=== PATIENT | female | born 1935 | race Hispanic/Latino ===

== ENCOUNTER 2017-06-12 20:03 | Emergency (ER) | payer MEDICARE ==
[2017-06-12 20:13] VITALS: PULSE 90; RESP 18; TEMP 97.8; O2SAT 99
[2017-06-12 20:30] VITALS: BP 188/93
[2017-06-12] MEDS ORDERED: Iohexol 240 (50 ml) PO ONE (22:07)
--- NOTE | 2017-06-12 22:07 | ED PDOC ---
HPI: General Adult Time Seen by Provider: 06/12/17 20:36 Chief Complaint (Nursing): GI Problem Chief Complaint (Provider): Constipation History Per: Patient History/Exam Limitations: no limitations Onset/Duration Of Symptoms: Days (x5) Additional Complaint(s): Madonna Marrero is an 82 year old female that presents to the ED with a chief complaint of constipation that has been ongoing for the past 5 days. Patient reports that although she has passed small amount of stool, she feels as though she still has a "large amount to move." Prior to onset, patient reports that she was experiencing diarrhea, for which she was taking Pepto Bismol. She states that she has had a loss of appetite and dark stool, the latter of which occurred after she began taking Pepto Bismol. She denies any nausea, vomiting, bloody stool, or abdominal pain. Patient states that she has been taking Amitiza as prescribed by her PMD, but with no relief. PMD: Dr. Izaguirre Past Medical History Reviewed: Historical Data, Nursing Documentation, Vital Signs Vital Signs: Last Vital Signs Temp 97.8 F 06/12/17 20:08 Pulse 90 06/12/17 20:08 Resp 18 06/12/17 20:08 BP 188/93 H 06/12/17 20:22 Pulse Ox 99 06/13/17 23:20 - Medical History Other PMH: Colitis, IBS - Family History Family History: States: Unknown Family Hx - Social History Current smoker - smoking cessation education provided: No - Home Medications Home Medications: Ambulatory Orders Medication Instructions Recorded Polyethylene Glycol 3350 [Miralax] 17 g PO QAM PRN #7 pkg 06/13/17 - Allergies Allergies/Adverse Reactions: Allergies Allergy/AdvReac Type Severity Reaction Status Date / Time No Known Allergies Allergy Verified 06/12/17 20:08 Review of Systems Constitutional: Positive for: Other (Loss of appetite) Gastrointestinal: Positive for: Diarrhea (prior to constipation), Constipation, Melena. Negative for: Nausea, Vomiting, Abdominal Pain, Hematochezia Physical Exam - Reviewed Nursing Documentation Reviewed: Yes Vital Signs Reviewed: Yes - Physical Exam Appears: Positive for: Non-toxic, In Acute Distress Head Exam: Positive for: ATRAUMATIC, NORMOCEPHALIC Skin: Positive for: Warm, Dry Eye Exam: Positive for: EOMI, PERRL Neck: Positive for: Painless ROM, Supple Cardiovascular/Chest: Positive for: Regular Rate, Rhythm. Negative for: Murmur Respiratory: Positive for: Normal Breath Sounds. Negative for: Wheezing Gastrointestinal/Abdominal: Positive for: Soft. 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 Negative for: Tenderness, Other (rectal impaction) Extremity: Positive for: Normal ROM. Negative for: Deformity Lymphatic: Negative for: Adenopathy Neurologic/Psych: Positive for: Alert. Negative for: Motor/Sensory Deficits - Laboratory Results Result Diagrams: 06/12/17 22:40 06/12/17 22:41 - ECG O2 Sat by Pulse Oximetry: 99 (RA) Pulse Ox Interpretation: Normal Medical Decision Making Medical Decision Making: Impression: Constipation, ddx include IBS vs. Obstruction Plan: * CT Abdomen/Pelvis with PO and IV contrast * X-Ray Obstructive Series * CMP * CBC * PTT * PT * Lactic Acid/Plasma * Lipase * Iohexol 50 ml PO * Phosphate Enema 135 mL * NaCl 1000 mLs at 1000 mLs/hr * Reevaluation Pt experienced minimal relief with fleet enema. Abd xray unremarkable. CT ordered. Scribe Attestation: Documented by Mine Kennedy, acting as a scribe for Sasha Restrepo MD. Provider Scribe Attestation: All medical record entries made by the Scribe were at my direction and personally dictated by me. I have reviewed the chart and agree that the record accurately reflects my personal performance of the history, physical exam, medical decision making, and the department course for this patient. I have also personally directed, reviewed, and agree with the discharge instructions and disposition. Disposition - Clinical Impression Clinical Impression: Constipation - Disposition Disposition Time: 00:00 Condition: STABLE Prescriptions: Polyethylene Glycol 3350 [Miralax] 17 g PO QAM PRN #7 pkg PRN Reason: Constipation Instructions: Constipation (ED) Forms: [employer] ([place]) Patient Signed Over To: Donnell Mohan (Pending CT and reevaluation.)
[2017-06-12] MEDS ORDERED: Sodium Chloride 0.9% 1,000 ML IV STA (22:08)
[2017-06-12] MEDS ORDERED: Iohexol 240 (50 ml) ONE (22:18)
[2017-06-12 22:44] LABS: BASO % 0.4 % (0.0-2.0); EOS # 0.1 K/uL (0.0-0.7); EOS % 1.3 % (0.0-4.0); HEMATOCRIT 39.1 % (34.0-47.0); LYMPH # 2.7 K/uL (1.0-4.3); LYMPH % 30.1 % (20.0-40.0); MEAN CELL VOLUME 91.1 fl (81.0-99.0); MEAN CORPUSCULAR HEMOGLOBIN 30.1 pg (27.0-31.0); MEAN PLATELET VOLUME 9.3 fl (7.2-11.7); MONO # 0.7 K/uL (0.0-0.8); MONO % 8.3 % (0.0-10.0); NEUT # 5.4 K/uL (1.8-7.0); NEUT % 59.9 % (50.0-75.0); NRBC % 0.1 % (0.0-0.0)
[2017-06-12 22:55] LABS: ALB/GLOB RATIO 1.4 (1.0-2.1); ALKALINE PHOSPHATASE 74 U/L (38-126); ALT/SGPT 17 U/L (9-52); AST/SGOT 55 U/L (14-36); BILIRUBIN,TOTAL 1.3 mg/dl (0.2-1.3); BLOOD UREA NITROGEN 10 mg/dl (7-17); CALCIUM 9.4 mg/dL (8.4-10.2); CARBON DIOXIDE 28 mmol/L (22-30); CHLORIDE 105 mmol/L (98-107); GFR AFRICAN-AMERICAN > 60; GLUCOSE,RANDOM 119 mg/dL (65-105); LIPASE 69 U/L (23-300); SODIUM 144 mmol/l (132-148); TOTAL PROTEIN 8.1 G/DL (6.3-8.2)
[2017-06-12 22:58] LABS: POTASSIUM 4.4 MMOL/L (3.6-5.0)
[2017-06-12 23:04] LABS: PARTIAL THROMBOPLASTIN TIME 27.4 Seconds (25.6-37.1)
--- NOTE | 2017-06-13 00:28 | ED PDOC ---
- Laboratory Results Result Diagrams: 06/12/17 22:40 06/12/17 22:41 - ECG O2 Sat by Pulse Oximetry: 99 (RA) Pulse Ox Interpretation: Normal Medical Decision Making Medical Decision Making: Patient transferred from Dr. Restrepo to hi at 00:00. Pending CT and reevaluation. EXAM: CT Abdomen and Pelvis With Intravenous Contrast CLINICAL HISTORY: 82 years old, female; Pain; Abdominal pain; Generalized; Additional info: Abdominal pain, constipation TECHNIQUE: Axial computed tomography images of the abdomen and pelvis with intravenous contrast. All CT scans at this facility use one or more dose reduction techniques, viz.: automated exposure control; ma/kV adjustment per patient size (including targeted exams where dose is matched to indication; i.e. head); or iterative reconstruction technique. 547 images are submitted. Oral contrast was administered. Coronal and sagittal reformatted images were created and reviewed. CONTRAST: 90 mL of omnipaque administered intravenously. COMPARISON: No relevant prior studies available. FINDINGS: Lower thorax: There is bibasilar atelectasis. Moderate to large hiatal hernia with wall thickening. This could be due to underdistention versus gastritis. ABDOMEN: Liver: Fatty liver. Gallbladder and bile ducts: Partially contracted gallbladder the gallbladder wall prominence. Pancreas: Unremarkable. No mass. No ductal dilation. Spleen: Unremarkable. No splenomegaly. Adrenals: Unremarkable. No mass. Kidneys and ureters: Bilateral extrarenal pelvis with physiologic distention of bilateral ureters. No hydronephrosis. Stomach and bowel: There are nonspecific fluid filled stomach, small bowel loops. These findings can represent ileus versus gastroenteritis/enteritis versus slow transit versus peristalsis. Diverticulosis. Moderate amount of stool in the colon. Nonspecific colonic wall thickening. Correlation with patient's clinical history of constipation versus stool related colitis versus under distention is recommended. Appendix: Appendix is seen and is top normal in thickness measuring 6 to 7 mm with no periappendiceal stranding. There is intraluminal contrast versus appendicolith. PELVIS: Bladder: Distended bladder. Reproductive: Uterus is seen. ABDOMEN and PELVIS: Intraperitoneal space: Unremarkable. No free air. No significant fluid collection. Bones/joints: Multilevel vacuum degenerative disease. Degenerative changes are noted within the spine. Right sided thoracic lumbar and left-sided lumbar scoliosis. Soft tissues: Unremarkable. Vasculature: Pelvic phleboliths. The aorta demonstrates calcified plaque and is mildly ectatic but normal in caliber. No abdominal aortic aneurysm. Lymph nodes: Unremarkable. No enlarged lymph nodes. IMPRESSION: 1.Moderate amount of stool in the colon. Nonspecific colonic wall thickening. Correlation with patient's clinical history of constipation versus stool related colitis versus under distention is recommended. 01:15. Discussed significance of results to patient and her son at bed side. Soap suds enema offered, but patient declined. Patient feels well enough to follow up with her PMD for further evaluation. Scribe Attestation: Documented by Dali Donaldson, acting as a scribe for Donnell Mohan. Provider Scribe Attestation: All medical record entries made by the Scribe were at my direction and personally dictated by me. I have reviewed the chart and agree that the record accurately reflects my personal performance of the history, physical exam, medical decision making, and the department course for this patient. I have also personally directed, reviewed, and agree with the discharge instructions and disposition. Disposition - Clinical Impression Clinical Impression: Constipation - POA Present On Arrival: None - Disposition Disposition: Routine/Home Disposition Time: 01:15 Condition: STABLE Prescriptions: Polyethylene Glycol 3350 [Miralax] 17 g PO QAM PRN #7 pkg PRN Reason: Constipation Instructions: Constipation (ED) Forms: [employer] ([place])
[2017-06-13] MEDS ORDERED: Sodium Chloride 0.9% 50 ML IV ONE (00:37)
[2017-06-13] MEDS ORDERED: Iohexol 300 100 ML IJ ONE (00:37)
--- NOTE | 2017-06-13 01:18 | CT ---
EXAM: CT Abdomen and Pelvis With Intravenous Contrast CLINICAL HISTORY: 82 years old, female; Pain; Abdominal pain; Generalized; Additional info: Abdominal pain, constipation TECHNIQUE: Axial computed tomography images of the abdomen and pelvis with intravenous contrast. All CT scans at this facility use one or more dose reduction techniques, viz.: automated exposure control; ma/kV adjustment per patient size (including targeted exams where dose is matched to indication; i.e. head); or iterative reconstruction technique. 547 images are submitted. Oral contrast was administered. Coronal and sagittal reformatted images were created and reviewed. CONTRAST: 90 mL of omnipaque administered intravenously. COMPARISON: No relevant prior studies available. FINDINGS: Lower thorax: There is bibasilar atelectasis. Moderate to large hiatal hernia with wall thickening. This could be due to underdistention versus gastritis. ABDOMEN: Liver: Fatty liver. Gallbladder and bile ducts: Partially contracted gallbladder the gallbladder wall prominence. Pancreas: Unremarkable. No mass. No ductal dilation. Spleen: Unremarkable. No splenomegaly. Adrenals: Unremarkable. No mass. Kidneys and ureters: Bilateral extrarenal pelvis with physiologic distention of bilateral ureters. No hydronephrosis. Stomach and bowel: There are nonspecific fluid filled stomach, small bowel loops. These findings can represent ileus versus gastroenteritis/enteritis versus slow transit versus peristalsis. Diverticulosis. Moderate amount of stool in the colon. Nonspecific colonic wall thickening. Correlation with patient's clinical history of constipation versus stool related colitis versus under distention is recommended. Appendix: Appendix is seen and is top normal in thickness measuring 6 to 7 mm with no periappendiceal stranding. There is intraluminal contrast versus appendicolith. PELVIS: Bladder: Distended bladder. Reproductive: Uterus is seen. ABDOMEN and PELVIS: Intraperitoneal space: Unremarkable. No free air. No significant fluid collection. Bones/joints: Multilevel vacuum degenerative disease. Degenerative changes are noted within the spine. Right sided thoracic lumbar and left-sided lumbar scoliosis. Soft tissues: Unremarkable. Vasculature: Pelvic phleboliths. The aorta demonstrates calcified plaque and is mildly ectatic but normal in caliber. No abdominal aortic aneurysm. Lymph nodes: Unremarkable. No enlarged lymph nodes. IMPRESSION: 1.Moderate amount of stool in the colon. Nonspecific colonic wall thickening. Correlation with patient's clinical history of constipation versus stool related colitis versus under distention is recommended.
--- NOTE | 2017-06-13 14:12 | RAD ---
PROCEDURE: Radiographs of the chest and abdomen (obstructive series) HISTORY: Abdominal pain, small-bowel obstruction suspected COMPARISON: June 12, 2017. CT abdomen and pelvis. TECHNIQUE: AP radiograph of the chest, with upright and supine radiographs of the abdomen. FINDINGS: CHEST: Lungs: Clear. Cardiovascular: No radiographic findings to suggest acute or significant cardiovascular disease. Pleura: No pleural fluid. No pneumothorax. Other findings: Small hiatal hernia ABDOMEN AND PELVIS: Bowel: Unremarkable bowel gas pattern. No evidence of mechanical obstruction. Free air: None. Bones: Unremarkable. Other findings: None. IMPRESSION: No significant or acute findings to account for/ related to the clinical presentation. Additional benign and/or incidental findings described above. Please note: No preliminary report/ innterpretation of this examination provided by emergency department personnel.
== END 2017-06-13 01:36 | disposition home or self-care (01) ==
LOC: H.ER 20:03
DX: K59.00 Constipation, unspecified (principal)
CPT/HCPCS: 74022; 74177; 80053; 83605; 83690; 85025; 85610; 85730; 96360; 99283; J7040; Q9966; Q9967

== ENCOUNTER 2018-02-23 02:40 | Emergency (ER) | payer MEDICARE ==
[2018-02-23 03:58] LABS: BASO % 0.4 % (0.0-2.0); EOS # 0.1 K/uL (0.0-0.7); EOS % 1.6 % (0.0-4.0); HEMOGLOBIN 12.5 g/dL (12.0-16.0); LYMPH # 2.4 K/uL (1.0-4.3); MEAN CELL VOLUME 90.1 fl (81.0-99.0); MEAN CORPUSCULAR HEMOGLOBIN 31.3 pg (27.0-31.0); MEAN CORPUSCULAR HGB CONC 34.7 g/dL (33.0-37.0); MEAN PLATELET VOLUME 8.6 fl (7.2-11.7); MONO # 0.6 K/uL (0.0-0.8); MONO % 7.2 % (0.0-10.0); NEUT # 4.6 K/uL (1.8-7.0); NEUT % 59.8 % (50.0-75.0); NRBC % 0.2 % (0.0-0.0); RBC 3.99 Mil/uL (3.80-5.20); RED CELL DISTRIBUTION WIDTH 13.1 % (11.5-14.5); WHITE BLOOD COUNT 7.6 K/uL (4.8-10.8)
[2018-02-23 04:10] LABS: ALB/GLOB RATIO 1.2 (1.0-2.1); ALBUMIN 3.8 g/dL (3.5-5.0); ALT/SGPT 32 U/L (9-52); AST/SGOT 23 U/L (14-36); BLOOD UREA NITROGEN 13 mg/dl (7-17); CALCIUM 9.6 mg/dL (8.4-10.2); GFR AFRICAN-AMERICAN > 60; GFR NON-AFRICAN AMERICAN > 60
[2018-02-23 04:11] VITALS: O2SAT 100
--- NOTE | 2018-02-23 04:25 | ED PDOC ---
HPI: Psych/Substance Abuse Time Seen by Provider: 02/23/18 03:11 Chief Complaint (Nursing): Anxiety Chief Complaint (Provider): Anxiety History Per: Patient History/Exam Limitations: no limitations Current Symptoms Are (Timing): Still Present Suicide/Self Injury Attempted (Context): None Associated Symptoms: Anxiety Additional Complaint(s): 83 year old female presents to ED with complaints of anxiety and a past medical history of chronic constipation, arthritis, and a known anxiety order. Patient describes feeling very uncomfortably and "'jittery". Notes that she takes Xanax QD but did not feel better after taking it earlier. Patient reports that she recently started seeing Dr. Wayne for pain management and believes that the injections for pain may be provoking this reaction. Confirms that at present she is not experiencing any symptoms. PCP: Nadeem Daniels Pain Management: [facility] Past Medical History Reviewed: Historical Data, Nursing Documentation, Vital Signs Vital Signs: Last Vital Signs Temp 99.0 F 02/23/18 03:03 Pulse 76 02/23/18 04:07 Resp 16 02/23/18 04:07 BP 186/94 H 02/23/18 04:07 Pulse Ox 100 02/23/18 04:07 - Medical History PMH: Anxiety, Arthritis, HTN (norvasc PRN) - Surgical History Surgical History: No Surg Hx - Family History Family History: States: Unknown Family Hx - Social History Current smoker - smoking cessation education provided: No Ex-Smoker (has not smoked in the last 12 months): No Alcohol: None Drugs: Denies - Home Medications Home Medications: Ambulatory Orders Medication Instructions Recorded Polyethylene Glycol 3350 [Miralax] 17 g PO QAM PRN #7 pkg 06/13/17 - Allergies Allergies/Adverse Reactions: Allergies Allergy/AdvReac Type Severity Reaction Status Date / Time No Known Allergies Allergy Verified 06/12/17 20:08 Review of Systems ROS Statement: Except As Marked, All Systems Reviewed And Found Negative Cardiovascular: Negative for: Chest Pain Respiratory: Negative for: Shortness of Breath Gastrointestinal: Negative for: Nausea, Vomiting Psych: Positive for: Anxiety Physical Exam - Reviewed Nursing Documentation Reviewed: Yes Vital Signs Reviewed: Yes - Physical Exam Appears: Positive for: Non-toxic, No Acute Distress Skin: Positive for: Normal Color, Warm, Dry Eye Exam: Positive for: Normal appearance, EOMI, PERRL Cardiovascular/Chest: Positive for: Regular Rate, Rhythm. Negative for: Murmur Respiratory: Positive for: Normal Breath Sounds. Negative for: Respiratory Distress Gastrointestinal/Abdominal: Positive for: Soft. Negative for: Tenderness Extremity: Positive for: Normal ROM. Negative for: Deformity Neurologic/Psych: Positive for: Alert, Oriented. Negative for: Motor/Sensory Deficits - Laboratory Results Result Diagrams: 02/23/18 03:45 02/23/18 03:45 - ECG ECG: Positive for: Interpreted By Me, Viewed By Me ECG Rhythm: Positive for: Normal QRS, Normal ST Segment, Sinus Rhythm Rate: 73 (04:02 02/23/18) O2 Sat by Pulse Oximetry: 100 (RA) Pulse Ox Interpretation: Normal Medical Decision Making Medical Decision Makin Initial impression: 83 year old female with non-specific anxiety Initial plan: * EKG * Labs * PTT/PT 0410 Patient noted to be hypertensive. Admits to not taking Norvasc * Norvasc 5mg PO * Re-eval 0600 Labs reviewed: no clinically signifiant abnormalities with the exception of hypokalemia * Potassium Chloride 40meq PO Patient is stable for discharge home. Dx: anxiety and hypokalemia Condition: improved Scribe Attestation: Documented by Karyn Monahan acting as a scribe for Donnell Mohan MD. Scribe Attestation: All medical record entries made by the Scribe were at my direction and personally dictated by me. I have reviewed the chart and agree that the record accurately reflects my personal performance of the history, physical exam, medical decision making, and the department course for this patient. I have also personally directed, reviewed, and agree with the discharge instructions and disposition. Disposition - Clinical Impression Clinical Impression: Anxiety, Hypertension - Disposition Referrals: Nadeem Daniels MD [Primary Care Provider] - Disposition: Routine/Home Disposition Time: 06:00 Condition: IMPROVED Instructions: Generalized Anxiety Disorder, High Blood Pressure in Adults Forms: [facility] ([place])
[2018-02-23 04:32] LABS: INR 1.1 (0.9-1.2); PARTIAL THROMBOPLASTIN TIME 27.7 Seconds (25.6-37.1); PROTHROMBIN TIME 11.7 Seconds (9.8-13.1)
[2018-02-23 05:49] VITALS: RESP 17
[2018-02-23] MEDS ORDERED: Potassium Chloride 20 mEq ER Tab PO ONE (06:00)
[2018-02-23 06:22] VITALS: BP 169/92; PULSE 76; TEMP 98.8
--- NOTE | 2018-02-23 11:04 | CARD ---
APPROVED REPORT EKG Measurement Heart [id number] VT 134P50 [id number] <Conclusion> Normal sinus rhythm Normal ECG
== END 2018-02-23 06:23 | disposition home or self-care (01) ==
LOC: H.ER 02:40
DX: F41.9 Anxiety disorder, unspecified (principal); I10 Essential (primary) hypertension; Z87.891 Personal history of nicotine dependence

== ENCOUNTER 2018-04-04 02:22 | Inpatient (IN) | payer MEDICARE ==
--- NOTE | 2018-04-04 03:10 | ED PDOC ---
HPI: Abdomen Time Seen by Provider: 04/04/18 02:31 Chief Complaint (Nursing): GI Problem Chief Complaint (Provider): GI Problem History Per: Patient, Family (sons) History/Exam Limitations: no limitations Onset/Duration Of Symptoms: Days (x1) Additional Complaint(s): Patient is an 83 y/o female with history of colitis and arthritis who presents to the ED with complaints of rectal bleeding with associated abdominal pain and diarrhea, onset x1 day ago. Patient reports that this morning at 01:30 she had a bowel movement and it seem like diarrhea but noticed a bright red color. Patient states she almost fainted, her skin was very hot to the touch after the episode, and a severe abdominal pain. At this time patient states that the pain is more of just a discomfort. She denies vomiting, shortness of breath, and chest pain. Patient is taking Tramadol and laxatives as well as medication for blood pressure. PMD:Nadeem Daniels Past Medical History Reviewed: Historical Data, Nursing Documentation, Vital Signs Vital Signs: Last Vital Signs Temp 98.5 F 04/04/18 23:42 Pulse 71 04/04/18 23:42 Resp 18 04/04/18 23:42 BP 160/77 H 04/04/18 23:42 Pulse Ox 98 04/04/18 23:42 - Medical History PMH: Anxiety, Arthritis, HTN (norvasc PRN) - Surgical History Other surgeries: Colonoscopy - Family History Family History: States: Unknown Family Hx - Home Medications Home Medications: Ambulatory Orders Medication Instructions Recorded Polyethylene Glycol 3350 [Miralax] 17 g PO QAM PRN #7 pkg 06/13/17 Tramadol HCl [Ultram] 50 mg PO Q6 04/04/18 amLODIPine [Norvasc] 5 mg PO DAILY 04/04/18 - Allergies Allergies/Adverse Reactions: Allergies Allergy/AdvReac Type Severity Reaction Status Date / Time No Known Allergies Allergy Verified 06/12/17 20:08 Review of Systems ROS Statement: Except As Marked, All Systems Reviewed And Found Negative Constitutional: Negative for: Fever Cardiovascular: Negative for: Chest Pain Respiratory: Negative for: Shortness of Breath Gastrointestinal: Positive for: Abdominal Pain, Diarrhea, Hematochezia. Negative for: Vomiting Neurological: Positive for: Dizziness (faint) Physical Exam - Reviewed Nursing Documentation Reviewed: Yes Vital Signs Reviewed: Yes - Physical Exam Appears: Positive for: Non-toxic, No Acute Distress Head Exam: Positive for: ATRAUMATIC, NORMOCEPHALIC Skin: Positive for: Pallor (lightly pale) Eye Exam: Positive for: Normal appearance, EOMI, PERRL ENT: Positive for: Normal ENT Inspection Neck: Positive for: Normal, Painless ROM, Supple Cardiovascular/Chest: Positive for: Tachycardia. Negative for: Murmur Respiratory: Positive for: Normal Breath Sounds. 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 Negative for: Pedal Edema, Deformity Neurologic/Psych: Positive for: Alert, Oriented. Negative for: Motor/Sensory Deficits - Laboratory Results Result Diagrams: 04/04/18 03:33 04/04/18 03:33 - ECG O2 Sat by Pulse Oximetry: 98 (RA) Pulse Ox Interpretation: Normal Medical Decision Making Medical Decision Making: Time: 03:05 Impression: Rectal bleeding and abdominal pain Initial Plan: Type and screen CT Abdomen and Pelvis BMP Troponin I CBC w/ differential PTT Prothrombin time Time: 05:17 CT Abdomen Pelvis with Contrast FINDINGS: Lung bases: Mild elevation right hemidiaphragm. Mediastinum: There is a small hiatal hernia. ABDOMEN: Liver: Visualized portion of the liver is unremarkable. Gallbladder and bile ducts: There has been a cholecystectomy. No biliary ductal dilatation. Pancreas: The pancreas is unremarkable. Spleen: The spleen is unremarkable. Adrenals: The adrenal glands are unremarkable. Kidneys and ureters: No hydronephrosis. No solid mass. Stomach and bowel: Wall thickening and hyper enhancement of the distal descending and sigmoid colon, compatible with infectious or inflammatory colitis. No evidence of bowel obstruction. Colonic diverticulosis. PELVIS: Appendix: Normal appendix. Bladder: Unremarkable. No mass. Reproductive: Uterus is unremarkable. No suspicious adnexal lesion seen. ABDOMEN and PELVIS: Intraperitoneal space: Unremarkable. No free air. No significant fluid collection. Bones/joints: Mild scoliosis. There are multilevel degenerative changes in the lumbar spine without acute osseous abnormality. Soft tissues: No soft tissue swelling. Vasculature: Atherosclerotic calcification affects the aorta and iliac arteries. No aortic aneurysm. Lymph nodes: No enlarged lymph nodes. IMPRESSION: Wall thickening and hyper enhancement of the distal descending and sigmoid colon , compatible with infectious or inflammatory colitis Scribe Attestation: Documented by Esa Fam, acting as a scribe for Lyric Carnes MD. Provider Scribe Attestation: All medical record entries made by the Scribe were at my direction and personally dictated by me. I have reviewed the chart and agree that the record accurately reflects my personal performance of the history, physical exam, medical decision making, and the department course for this patient. I have also personally directed, reviewed, and agree with the discharge instructions and disposition. Disposition - Clinical Impression Clinical Impression: Colitis, Gastrointestinal hemorrhage - Patient ED Disposition Is Patient to be Admitted: Yes Discussed With : Meggan Nunez Doctor Will See Patient In The: ED Counseled Patient/Family Regarding: Studies Performed, Diagnosis - Disposition Disposition Time: 05:00 Condition: FAIR - Pt Status Changed To: Hospital Disposition Of: Observation - POA Present On Arrival: None
[2018-04-04 03:37] LABS: BASO % 0.3 % (0.0-2.0); EOS % 0.2 % (0.0-4.0); HEMOGLOBIN 12.8 g/dL (12.0-16.0); LYMPH # 2.3 K/uL (1.0-4.3); LYMPH % 13.7 % (20.0-40.0); MEAN CELL VOLUME 90.7 fl (81.0-99.0); MEAN CORPUSCULAR HEMOGLOBIN 31.3 pg (27.0-31.0); MEAN CORPUSCULAR HGB CONC 34.5 g/dL (33.0-37.0); MEAN PLATELET VOLUME 8.6 fl (7.2-11.7); MONO # 0.7 K/uL (0.0-0.8); MONO % 4.4 % (0.0-10.0); NEUT # 13.5 K/uL (1.8-7.0); NEUT % 81.4 % (50.0-75.0); NRBC % 0.1 % (0.0-0.0); RBC 4.1 Mil/uL (3.80-5.20); RED CELL DISTRIBUTION WIDTH 12.8 % (11.5-14.5); WHITE BLOOD COUNT 16.5 K/uL (4.8-10.8)
[2018-04-04 03:41] LABS: INR 1.1; PROTHROMBIN TIME 11.7 Seconds (9.8-13.1)
[2018-04-04 03:44] LABS: PARTIAL THROMBOPLASTIN TIME 30.1 Seconds (25.6-37.1)
[2018-04-04 03:45] LABS: BLOOD UREA NITROGEN 19 mg/dl (7-17); CALCIUM 9.4 mg/dL (8.4-10.2); GFR AFRICAN-AMERICAN > 60; GFR NON-AFRICAN AMERICAN 60
[2018-04-04] MEDS ORDERED: Iohexol 300 100 ML IJ ONE (03:51)
[2018-04-04] MEDS ORDERED: Sodium Chloride 0.9% 50 ML IV ONE (03:52)
[2018-04-04] MEDS ORDERED: Ciprofloxacin 400mg/200ml D5W 400 MG/200 ML BAG IVPB STA (05:27)
[2018-04-04] MEDS ORDERED: metroNIDAZOLE 500mg/100ml NS 100 ML IVPB STA (05:28)
--- NOTE | 2018-04-04 06:22 | CP.PCM.HP ---
History of Present Illness - History of Present Illness History of Present Illness: 83 YO F w/ PMH of HTN, Colitis, Chronic constipation, arthritis, IBS presents to the ED after after she had a small bowl movement around 1:30 pm on (04/03/18). Patient felt as if she was having diarrhea, when she wiped she noted there was bright red blood on the toilet paper, however there was no gross blood in the toilet itself. At that point she felt light headed and grabbed on to the cabinet but did not loose consciousness or hit her head. Denies staining at that time, states she felt very hot and had cramping abdominal pain 12/09. At 10 pm she had another episode of loose stool where she noted some blood, that is when she went and called her son to take her to the ER. Patient denies previously ever noting bright red blood in her stools. She takes miralax for her constipation usually. States she had a normal large bowl movement on without any problems. Patient states she has decreased weight within the last year because she is not able to eat certain foods, because it causes stomach discomfort. She has lost about 10 pound in the last year. Denies any night sweats, fever, chills, nausea, vomiting, SOB, palpitation or chest pain. Denies any recent usage of any antibiotics. - Patient had a colonoscopy 5 years ago by . As per patient there was nothing concerning other then collitis and 2 polyps which were removed. PMH: HTN, Collitis, IBS, Chronic constipation, arthritis, Anxiety PSH: None Allergies: NKDA FH: None SH: Denies any illicit drug use, lives with her son. PMD: Dr. Izaguirre Present on Admission - Present on Admission Any Indicators Present on Admission: No Past Patient History - Past Social History Smoking Status: Never Smoked - CARDIAC Hx Hypertension: Yes (norvasc PRN) - MUSCULOSKELETAL/RHEUMATOLOGICAL Hx Arthritis: Yes - GASTROINTESTINAL Hx Gastrointestinal Disorders: Yes Hx Colitis: Yes Hx Constipation: Yes - PSYCHIATRIC Hx Anxiety: Yes - SURGICAL HISTORY Hx Surgeries: No - ANESTHESIA Hx Anesthesia: No Meds Allergies/Adverse Reactions: Allergies Allergy/AdvReac Type Severity Reaction Status Date / Time No Known Allergies Allergy Verified 06/12/17 20:08 Physical Exam - Constitutional Appears: No Acute Distress - Head Exam Head Exam: NORMAL INSPECTION - Eye Exam Eye Exam: Normal appearance Pupil Exam: NORMAL ACCOMODATION - ENT Exam ENT Exam: Mucous Membranes Dry - Neck Exam Neck exam: Positive for: Normal Inspection - Respiratory Exam Respiratory Exam: Clear to Auscultation Bilateral, NORMAL BREATHING PATTERN. absent: Rhonchi, Wheezes - Cardiovascular Exam Cardiovascular Exam: REGULAR RHYTHM, +S1, +S2 - GI/Abdominal Exam GI & Abdominal Exam: Normal Bowel Sounds, Soft, Tenderness. absent: Guarding Additional comments: left lower quadrant tenderness - Extremities Exam Extremities exam: Positive for: normal inspection. Negative for: calf tenderness - Neurological Exam Neurological exam: Alert, CN II-XII Intact, Oriented x3 - Skin Skin Exam: Pallor, Warm Results - Vital Signs Recent Vital Signs: Last Vital Signs Temp 98.3 F 04/04/18 05:13 Pulse 88 04/04/18 05:13 Resp 16 04/04/18 05:13 BP 147/90 04/04/18 05:13 Pulse Ox 98 04/04/18 05:19 - Labs Result Diagrams: 04/04/18 03:33 04/04/18 03:33 Labs: Laboratory Results - last 24 hr 04/04/18 04/04/18 04/04/18 03:25 03:33 03:33 WBC 16.5 H D RBC 4.10 Hgb 12.8 Hct 37.2 MCV 90.7 MCH 31.3 H MCHC 34.5 RDW 12.8 Plt Count 218 MPV 8.6 Neut % (Auto) 81.4 H Lymph % (Auto) 13.7 L [place] % (Auto) 4.4 Eos % (Auto) 0.2 Baso % (Auto) 0.3 Neut # (Auto) 13.5 H Lymph # (Auto) 2.3 [place] # (Auto) 0.7 Eos # (Auto) 0.0 Baso # (Auto) 0.0 PT INR APTT Sodium 142 Potassium 3.7 Chloride 101 Carbon Dioxide 28 Anion Gap 17 BUN 19 H Creatinine 0.9 Est GFR ( Amer) > 60 Est GFR (Non-Af Amer) 60 Random Glucose 138 H Calcium 9.4 Troponin I < 0.0120 Stool Occult Blood Blood Type A POSITIVE Antibody Screen Negative BBK History Checked No verified bt 04/04/18 04/04/18 03:33 03:33 WBC RBC Hgb Hct MCV MCH MCHC RDW Plt Count MPV Neut % (Auto) Lymph % (Auto) [place] % (Auto) Eos % (Auto) Baso % (Auto) Neut # (Auto) Lymph # (Auto) [place] # (Auto) Eos # (Auto) Baso # (Auto) PT 11.7 INR 1.1 APTT 30.1 Sodium Potassium Chloride Carbon Dioxide Anion Gap BUN Creatinine Est GFR ( Amer) Est GFR (Non-Af Amer) Random Glucose Calcium Troponin I Stool Occult Blood Positive H Blood Type Antibody Screen BBK History Checked Assessment & Plan - Assessment and Plan (Free Text) Assessment: 83 YO F w/ PMH of HTN, colitis, arthritis, IBS is being admitted for abdominal pain and bright red blood per rectum. 1) Abdominal pain most likely secondary to colitis - CT abdomen: Wall thickening and hyper enhancement of the distal descending and sigmoid colon, compatible with infectious or inflammatory colitis - WBC: 16.5, afebrile - FOBT positive, Hemoglobin stable - NPO, will advance diet as tolerated - [facility] Rx Cipro 400mg Q12 and Flagyl 500 Q8 - GI consulted 2) HTN - c/w home meds 3) DVT prophylaxis - SCD
[2018-04-04] MEDS ORDERED: Ciprofloxacin 400mg/200ml D5W 400 MG/200 ML BAG IVPB ONE (06:23)
[2018-04-04] MEDS ORDERED: POLYETHYLENE GLYCOL 3350 17 GM/Dose PACKET PO PRN (06:30)
[2018-04-04] MEDS: Sodium Chloride 0.9% 1,000 ML IV SCH ×2 (07:59→17:01)
--- NOTE | 2018-04-04 09:02 | CT ---
Date of service: 04/04/2018 PROCEDURE: CT Abdomen and Pelvis without intravenous contrast HISTORY: lower abd pain rectal bleeding COMPARISON: None. TECHNIQUE: Technique. Contrast dose: Radiation dose: Total exam DLP = mGy-cm. This CT exam was performed using one or more of the following dose reduction techniques: Automated exposure control, adjustment of the mA and/or kV according to patient size, and/or use of iterative reconstruction technique. FINDINGS: LOWER THORAX: Moderate hiatal hernia. LIVER: Unremarkable. No gross lesion or ductal dilatation. GALLBLADDER AND BILE DUCTS: Unremarkable. PANCREAS: Unremarkable. No gross lesion or ductal dilatation. SPLEEN: Unremarkable. ADRENALS: Unremarkable. No mass. KIDNEYS AND URETERS: Unremarkable. No hydronephrosis. No solid mass. VASCULATURE: Unremarkable. No aortic aneurysm. BOWEL: Mild wall thickening of the descending colon and sigmoid colon and rectum. Mild colonic diverticulosis. No obstruction. APPENDIX: Unremarkable. Normal appendix. PERITONEUM: Unremarkable. No free fluid. No free air. LYMPH NODES: Unremarkable. No enlarged lymph nodes. BLADDER: Unremarkable. REPRODUCTIVE: Unremarkable. BONES: No acute fracture. OTHER FINDINGS: None. IMPRESSION: Mild wall thickening of the descending colon and sigmoid colon and rectum. Mild colonic diverticulosis. No obstruction.
[2018-04-04] MEDS: metroNIDAZOLE 500mg/100ml NS 100 ML IVPB SCH (17:00)
[2018-04-04] MEDS: Ciprofloxacin 400mg/200ml D5W 400 MG/200 ML BAG IVPB SCH (20:48)
--- NOTE | 2018-04-04 23:38 | CP.PCM.CON ---
History of Present Illness - History of Present Illness History of Present Illness: 83 yo femalewith h/o "colititis" , hypertension , and irregular bowel movements admitted with abdominal pain, weakness, and bloody bowel movement. This started while sleeping at night. Patient states she has to limit her diet because she is unable to tolerate many foods. Has been ordering out rather than cooking over the past week and one of the soups did not taste right. Last colonscopy 5 years ago. On no daily GI medicines. Review of Systems - Constitutional Constitutional: absent: Chills - EENT Eyes: absent: Blurred Vision Ears: absent: Ear Discharge Nose/Mouth/Throat: absent: Nasal Congestion - Breasts Breasts: absent: Change in Shape - Cardiovascular Cardiovascular: absent: Chest Pain - Respiratory Respiratory: absent: Dyspnea - Gastrointestinal Gastrointestinal: As Per HPI - Genitourinary Genitourinary: absent: Change in Urinary Stream - Musculoskeletal Musculoskeletal: absent: Arthralgias Past Patient History - Past Medical History & Family History Past Medical History?: Yes - Past Social History Smoking Status: Stopped 30 - CARDIAC Hx Hypertension: Yes (norvasc PRN) - PULMONARY Hx Respiratory Disorders: No - NEUROLOGICAL Hx Vertigo: Yes - HEENT Other/Comment: Wears corrective lenses for reading - RENAL Hx Chronic Kidney Disease: No - HEMATOLOGICAL/ONCOLOGICAL Hx Blood Disorders: No - INTEGUMENTARY Hx Dermatological Problems: No - MUSCULOSKELETAL/RHEUMATOLOGICAL Hx Musculoskeletal Disorders: Yes Hx Arthritis: Yes Hx Back Pain: Yes Hx Falls: Yes (Questionable fall in BR/did not pass out, assisted self to floor) Other/Comment: Ambulates at home with use of Quad cane - GASTROINTESTINAL Hx Gastrointestinal Disorders: Yes Hx Colitis: Yes Hx Constipation: Yes - GENITOURINARY/GYNECOLOGICAL Hx Genitourinary Disorders: No - PSYCHIATRIC Hx Psychophysiologic Disorder: No Hx Anxiety: Yes Hx Substance Use: No - SURGICAL HISTORY Hx Surgeries: Yes Other/Comment: Polyp surgery post childbirth of 2nd son - ANESTHESIA Hx Anesthesia: Yes Hx Anesthesia Reactions: No Meds Allergies/Adverse Reactions: Allergies Allergy/AdvReac Type Severity Reaction Status Date / Time No Known Allergies Allergy Verified 06/12/17 20:08 - Medications Medications: Current Medications Amlodipine Besylate (Norvasc) 5 mg PO DAILY KYLIE Last Admin: 04/04/18 08:44 Dose: 5 mg Diazepam (Valium) 2 mg PO TID PRN PRN Reason: Agitation Last Admin: 04/04/18 22:25 Dose: 2 mg Enoxaparin Sodium (Lovenox) 40 mg SC DAILY KYLIE PRN Reason: Protocol Ciprofloxacin (Cipro 400mg/200ml Dsw) 400 mg in 200 mls @ 200 mls/hr IVPB Q12 KYLIE PRN Reason: Protocol Last Admin: 04/04/18 20:48 Dose: 200 mls/hr Metronidazole (Flagyl 500mg/100ml Ns) 100 mls @ 100 mls/hr IVPB Q8 KYLIE PRN Reason: Protocol Last Admin: 04/04/18 17:00 Dose: 100 mls/hr Polyethylene Glycol (Miralax) 17 gm PO QAM PRN PRN Reason: Constipation Physical Exam - Constitutional Appears: Well - Head Exam Head Exam: NORMAL INSPECTION - Eye Exam Eye Exam: EOMI - ENT Exam ENT Exam: Normal Exam - Neck Exam Neck exam: Positive for: Normal Inspection - Respiratory Exam Respiratory Exam: Clear to Auscultation Bilateral - Cardiovascular Exam Cardiovascular Exam: REGULAR RHYTHM, +S1, +S2 - GI/Abdominal Exam GI & Abdominal Exam: Normal Bowel Sounds, Soft. absent: Tenderness - Extremities Exam Extremities exam: Positive for: normal inspection Results - Vital Signs Recent Vital Signs: Last Vital Signs Temp 99.5 F 04/04/18 17:06 Pulse 84 04/04/18 16:10 Resp 18 04/04/18 16:10 BP 145/83 04/04/18 16:10 Pulse Ox 98 04/04/18 16:10 - Labs Result Diagrams: 04/04/18 03:33 04/04/18 03:33 Labs: Laboratory Results - last 24 hr 04/04/18 04/04/18 04/04/18 03:25 03:33 03:33 WBC 16.5 H D RBC 4.10 Hgb 12.8 Hct 37.2 MCV 90.7 MCH 31.3 H MCHC 34.5 RDW 12.8 Plt Count 218 MPV 8.6 Neut % (Auto) 81.4 H Lymph % (Auto) 13.7 L [place] % (Auto) 4.4 Eos % (Auto) 0.2 Baso % (Auto) 0.3 Neut # (Auto) 13.5 H Lymph # (Auto) 2.3 [place] # (Auto) 0.7 Eos # (Auto) 0.0 Baso # (Auto) 0.0 PT INR APTT Sodium 142 Potassium 3.7 Chloride 101 Carbon Dioxide 28 Anion Gap 17 BUN 19 H Creatinine 0.9 Est GFR ( Amer) > 60 Est GFR (Non-Af Amer) 60 Random Glucose 138 H Calcium 9.4 Troponin I < 0.0120 Stool Occult Blood Blood Type A POSITIVE Antibody Screen Negative BBK History Checked No verified bt 04/04/18 04/04/18 03:33 03:33 WBC RBC Hgb Hct MCV MCH MCHC RDW Plt Count MPV Neut % (Auto) Lymph % (Auto) [place] % (Auto) Eos % (Auto) Baso % (Auto) Neut # (Auto) Lymph # (Auto) [place] # (Auto) Eos # (Auto) Baso # (Auto) PT 11.7 INR 1.1 APTT 30.1 Sodium Potassium Chloride Carbon Dioxide Anion Gap BUN Creatinine Est GFR ( Amer) Est GFR (Non-Af Amer) Random Glucose Calcium Troponin I Stool Occult Blood Positive H Blood Type Antibody Screen BBK History Checked - Imaging and Cardiology CT scan - abdomen Status: Report reviewed by me Assessment & Plan (1) Colitis Assessment and Plan: Rectal bleeding, abdominal pain, and wall thickening of distal and sigmoid with hyperenhancement c/w colitis. Occurence while at rest more c/w infectious than ischemic. Currently doing well and is w/o pain. May advance diet as tolerated and when discharged continue on oral antibiotics for one week. Status: Acute
[2018-04-05] MEDS: metroNIDAZOLE 500mg/100ml NS 100 ML IVPB SCH ×3 (00:06→16:55)
[2018-04-05] MEDS ORDERED: Benzocaine/Menthol (Cepacol) Lozenge PO PRN (04:19)
[2018-04-05 07:49] LABS: BASO % 0.1 % (0.0-2.0); EOS # 0.1 K/uL (0.0-0.7); EOS % 0.5 % (0.0-4.0); HEMOGLOBIN 12.1 g/dL (12.0-16.0); LYMPH # 1.9 K/uL (1.0-4.3); LYMPH % 13.3 % (20.0-40.0); MEAN CELL VOLUME 91.1 fl (81.0-99.0); MEAN CORPUSCULAR HEMOGLOBIN 30.9 pg (27.0-31.0); MEAN PLATELET VOLUME 9.1 fl (7.2-11.7); MONO # 0.8 K/uL (0.0-0.8); MONO % 5.6 % (0.0-10.0); NEUT # 11.4 K/uL (1.8-7.0); NEUT % 80.5 % (50.0-75.0); NRBC % 0.1 % (0.0-0.0); RBC 3.91 Mil/uL (3.80-5.20); RED CELL DISTRIBUTION WIDTH 12.9 % (11.5-14.5); WHITE BLOOD COUNT 14.1 K/uL (4.8-10.8)
[2018-04-05] MEDS: Ciprofloxacin 400mg/200ml D5W 400 MG/200 ML BAG IVPB SCH ×2 (08:59→21:15)
[2018-04-05] MEDS: Enoxaparin 40 mg Syringe SC SCH ×2 (09:01→09:03)
--- NOTE | 2018-04-05 16:10 | CP.PCM.PN ---
Subjective - Date & Time of Evaluation Date of Evaluation: 04/05/18 Time of Evaluation: 08:45 - Subjective Subjective: Patient seen and examined at bedside. Reports eating some solid food for breakfast which caused some abdominal discomfort. Bowel movements remain watery , denies abdominal cramping or blood in the stool. Son at bedside and patient recall multiple episode of similar symptoms many years ago, reports usually occurs in hot/humid weather. Denies chest pain, SOB, weakness or dizziness. Objective - Vital Signs/Intake and Output Vital Signs (last 24 hours): Temp Pulse Resp BP Pulse Ox 97.7 F 92 H 19 160/94 H 97 04/05/18 07:42 04/05/18 08:53 04/05/18 07:42 04/05/18 08:53 04/05/18 07:42 - Medications Medications: Current Medications Amlodipine Besylate (Norvasc) 5 mg PO DAILY [facility] Last Admin: 04/05/18 08:53 Dose: 5 mg Benzocaine/Menthol (Cepacol Sore Throat) 1 amari PO Q2 PRN PRN Reason: Sore Throat Last Admin: 04/05/18 04:43 Dose: 1 amari Diazepam (Valium) 2 mg PO TID PRN PRN Reason: Agitation Last Admin: 04/04/18 22:25 Dose: 2 mg Enoxaparin Sodium (Lovenox) 40 mg SC DAILY KYLIE PRN Reason: Protocol Last Admin: 04/05/18 09:03 Dose: Not Given Ciprofloxacin (Cipro 400mg/200ml Dsw) 400 mg in 200 mls @ 200 mls/hr IVPB Q12 KYLIE PRN Reason: Protocol Last Admin: 04/05/18 08:59 Dose: 200 mls/hr Metronidazole (Flagyl 500mg/100ml Ns) 100 mls @ 100 mls/hr IVPB Q8 KYLIE PRN Reason: Protocol Last Admin: 04/05/18 09:00 Dose: 100 mls/hr Polyethylene Glycol (Miralax) 17 gm PO QAM PRN PRN Reason: Constipation - Labs Labs: 04/05/18 05:30 04/04/18 03:33 PT 11.7 Seconds (9.8-13.1) 04/04/18 03:33 INR 1.1 04/04/18 03:33 APTT 30.1 Seconds (25.6-37.1) 04/04/18 03:33 - Constitutional Appears: No Acute Distress - Head Exam Head Exam: ATRAUMATIC, NORMOCEPHALIC - Eye Exam Eye Exam: EOMI - ENT Exam ENT Exam: Mucous Membranes Moist - Neck Exam Neck Exam: Full ROM - Respiratory Exam Respiratory Exam: Clear to Ausculation Bilateral, NORMAL BREATHING PATTERN - Cardiovascular Exam Cardiovascular Exam: REGULAR RHYTHM, +S1, +S2 - GI/Abdominal Exam GI & Abdominal Exam: Soft, Tenderness (mild in right periumbilical area, LLQ), Normal Bowel Sounds. absent: Guarding, Rigid - Extremities Exam Extremities Exam: Full ROM. absent: Pedal Edema - Neurological Exam Neurological Exam: Alert, Awake, CN II-XII Intact, Oriented x3 - Psychiatric Exam Psychiatric exam: Normal Affect, Normal Mood - Skin Skin Exam: Dry, Normal Color, Warm Assessment and Plan - Assessment and Plan (Free Text) Assessment: 83 yr old F admitted for symptomatic colitis and +FOBT with PMHx of HTN, colitis , arthritis, IBS. 1) Colitis of distal descending and sigmoid colon -acute, improving -CT abdomen: Wall thickening and hyper enhancement of the distal descending and sigmoid colon, compatible with infectious or inflammatory colitis -leukocytosis improving (14.1 today), afebrile -FOBT positive, Hemoglobin stable -Diet advanced -continue Cipro 400mg IV Q12 and Flagyl 500mg IV Q8, held home medication ( Miralax) -GI consulted: Dr. Hoskins appreciated: assessment consistent more with infectious colitis than with ischemic: advance diet, continue with IV antiobiotics -shank cementer hand consult appreciated 2) HTN -chronic, uncontrolled -continue with home medications: Amlodipine 5mg PO QD 3) DVT prophylaxis -Lovenox 40mg SC QD
[2018-04-06 00:36] VITALS: O2SAT 99
[2018-04-06] MEDS: metroNIDAZOLE 500mg/100ml NS 100 ML IVPB SCH ×2 (01:20→11:50)
--- NOTE | 2018-04-06 06:05 | CP.PCM.PCO ---
<Meggan Nunez - Last Filed: 04/06/18 05:58> Progress - Re-Evaluation Re-evaluation Note: 04/06/18 05:58 RN paged the creative writer to assess the patient. Patient has taken her IV out. She is having delusions that "someone took her sons and did something with them." "People are throwing rocks at her from the window". She is getting up out of bed and going into other patients rooms. - Multiple attempts were made to reorient the patient and reassure her she is in [place] and her sons will come visit her later. Patient is becoming more agitated, and cursing at the nursing staff. General: Agitated CVS: S1S2 heard Lungs: CTAB Abd: Soft NTND A/P For patients safety : - 1:1 has been ordered - Haldol 0.5 IM - Hold patients valium to prevent worsening delirium - CBC, CMP, U/A. Will work patient up to see cause of acute delirium <Nadeem Daniels - Last Filed: 04/06/18 06:52> Attending/Attestation - Attestation I have personally seen and examined this patient.: Yes I have fully participated in the care of the patient.: Yes I have reviewed all pertinent clinical information: Yes
[2018-04-06 08:04] VITALS: BP 163/90; PULSE 83; RESP 20; TEMP 98.2
--- NOTE | 2018-04-06 08:31 | RAD ---
Date of service: 04/06/2018 HISTORY: r/o pneumonia COMPARISON: Frontal chest radiograph 06/12/2017. FINDINGS: LUNGS: No acute infiltrate identified. Reversed apical lordotic capture distorts mediastinum. Inspiratory volume may be diminished somewhat. PLEURA: No significant pleural effusion identified, no pneumothorax apparent. CARDIOVASCULAR: Normal. OSSEOUS STRUCTURES: No significant abnormalities. VISUALIZED UPPER ABDOMEN: Normal. OTHER FINDINGS: None. IMPRESSION: No definite interval acute cardiopulmonary disease appreciable.
[2018-04-06 09:32] LABS: SQUAMOUS EPITHIAL 6 /hpf (0-5); URINE BILIRUBIN NEGATIVE (NEGATIVE); URINE BLOOD SMALL (NEGATIVE); URINE CLARITY SLIGHTY-CLOUDY (Clear); URINE COLOR YELLOW (YELLOW); URINE GLUCOSE (UA) NEG (Normal); URINE HYALINE CAST 0-2 /hpf (0-2); URINE LEUKOCYTE ESTERASE MOD Leu/uL (Negative); URINE PROTEIN NEGATIVE (NEGATIVE); URINE UROBILINOGEN 0.2-1.0 mg/dL (0.2-1.0)
[2018-04-06 10:51] LABS: BASO % 0.3 % (0.0-2.0); EOS # 0.1 K/uL (0.0-0.7); EOS % 1.4 % (0.0-4.0); HEMOGLOBIN 11.9 g/dL (12.0-16.0); LYMPH # 1.4 K/uL (1.0-4.3); LYMPH % 14.3 % (20.0-40.0); MEAN CELL VOLUME 90.9 fl (81.0-99.0); MEAN CORPUSCULAR HEMOGLOBIN 31.6 pg (27.0-31.0); MEAN CORPUSCULAR HGB CONC 34.7 g/dL (33.0-37.0); MEAN PLATELET VOLUME 9.3 fl (7.2-11.7); MONO # 0.6 K/uL (0.0-0.8); MONO % 6.3 % (0.0-10.0); NEUT # 7.7 K/uL (1.8-7.0); NEUT % 77.7 % (50.0-75.0); RBC 3.78 Mil/uL (3.80-5.20); RED CELL DISTRIBUTION WIDTH 12.8 % (11.5-14.5); WHITE BLOOD COUNT 9.9 K/uL (4.8-10.8)
[2018-04-06 11:09] LABS: ALB/GLOB RATIO 1.3 (1.0-2.1); ALBUMIN 3.6 g/dL (3.5-5.0); ALT/SGPT 22 U/L (9-52); AST/SGOT 57 U/L (14-36); BLOOD UREA NITROGEN 5 mg/dl (7-17); CALCIUM 9.2 mg/dL (8.4-10.2); GFR AFRICAN-AMERICAN > 60; GFR NON-AFRICAN AMERICAN > 60
[2018-04-06] MEDS: Enoxaparin 40 mg Syringe SC SCH (11:44)
[2018-04-06] MEDS ORDERED: Potassium Chloride 20 mEq ER Tab PO ONE (11:46)
[2018-04-06] MEDS: Ciprofloxacin 400mg/200ml D5W 400 MG/200 ML BAG IVPB SCH (11:49)
--- NOTE | 2018-04-06 12:22 | CP.PCM.DIS ---
Provider - Provider Date of Admission: 04/04/18 12:30 Attending physician: Nadeem Daniels MD Primary care physician: Dr. Daniels Consults: GI, Dr. Barron Time Spent in preparation of Discharge (in minutes): 40 Diagnosis - Discharge Diagnosis (1) Infectious colitis Status: Acute (2) Hypertension Status: Chronic Hospital Course - Lab Results Lab Results: Most Recent Lab Values WBC 9.9 K/uL (4.8-10.8) 04/06/18 10:45 RBC 3.78 Mil/uL (3.80-5.20) L 04/06/18 10:45 Hgb 11.9 g/dL (12.0-16.0) L 04/06/18 10:45 Hct 34.4 % (34.0-47.0) 04/06/18 10:45 MCV 90.9 fl (81.0-99.0) 04/06/18 10:45 MCH 31.6 pg (27.0-31.0) H 04/06/18 10:45 MCHC 34.7 g/dL (33.0-37.0) 04/06/18 10:45 RDW 12.8 % (11.5-14.5) 04/06/18 10:45 Plt Count 205 K/uL (130-400) 04/06/18 10:45 MPV 9.3 fl (7.2-11.7) 04/06/18 10:45 Neut % (Auto) 77.7 % (50.0-75.0) H 04/06/18 10:45 Lymph % (Auto) 14.3 % (20.0-40.0) L 04/06/18 10:45 [place] % (Auto) 6.3 % (0.0-10.0) 04/06/18 10:45 Eos % (Auto) 1.4 % (0.0-4.0) 04/06/18 10:45 Baso % (Auto) 0.3 % (0.0-2.0) 04/06/18 10:45 Neut # (Auto) 7.7 K/uL (1.8-7.0) H 04/06/18 10:45 Lymph # (Auto) 1.4 K/uL (1.0-4.3) 04/06/18 10:45 [place] # (Auto) 0.6 K/uL (0.0-0.8) 04/06/18 10:45 Eos # (Auto) 0.1 K/uL (0.0-0.7) 04/06/18 10:45 Baso # (Auto) 0.0 K/uL (0.0-0.2) 04/06/18 10:45 PT 11.7 Seconds (9.8-13.1) 04/04/18 03:33 INR 1.1 04/04/18 03:33 APTT 30.1 Seconds (25.6-37.1) 04/04/18 03:33 Sodium 143 mmol/l (132-148) 04/06/18 10:45 Potassium 3.0 MMOL/L (3.6-5.0) L 04/06/18 10:45 Chloride 105 mmol/L (98-107) 04/06/18 10:45 Carbon Dioxide 27 mmol/L (22-30) 04/06/18 10:45 Anion Gap 14 (10-20) 04/06/18 10:45 BUN 5 mg/dl (7-17) L 04/06/18 10:45 Creatinine 0.8 mg/dl (0.7-1.2) 04/06/18 10:45 Est GFR ( Amer) > 60 04/06/18 10:45 Est GFR (Non-Af Amer) > 60 04/06/18 10:45 Random Glucose 146 mg/dL (65-105) H 04/06/18 10:45 Calcium 9.2 mg/dL (8.4-10.2) 04/06/18 10:45 Total Bilirubin 0.7 mg/dl (0.2-1.3) 04/06/18 10:45 AST 57 U/L (14-36) H D 04/06/18 10:45 ALT 22 U/L (9-52) 04/06/18 10:45 Alkaline Phosphatase 66 U/L (38-126) 04/06/18 10:45 Troponin I < 0.0120 ng/mL (0.00-0.120) 04/04/18 03:33 Total Protein 6.4 G/DL (6.3-8.2) 04/06/18 10:45 Albumin 3.6 g/dL (3.5-5.0) 04/06/18 10:45 Globulin 2.8 gm/dL (2.2-3.9) 04/06/18 10:45 Albumin/Globulin Ratio 1.3 (1.0-2.1) 04/06/18 10:45 Urine Color Yellow (YELLOW) 04/06/18 09:12 Urine Clarity Slighty-cloudy (Clear) 04/06/18 09:12 Urine pH 7.0 (5.0-8.0) 04/06/18 09:12 Ur Specific [place] 1.008 (1.003-1.030) 04/06/18 09:12 Urine Protein Negative mg/dL (NEGATIVE) 04/06/18 09:12 Urine Glucose (UA) Neg mg/dL (Normal) 04/06/18 09:12 Urine Ketones Negative mg/dL (NEGATIVE) 04/06/18 09:12 Urine Blood Small (NEGATIVE) 04/06/18 09:12 Urine Nitrate Negative (NEGATIVE) 04/06/18 09:12 Urine Bilirubin Negative (NEGATIVE) 04/06/18 09:12 Urine Urobilinogen 0.2-1.0 mg/dL (0.2-1.0) 04/06/18 09:12 Ur Leukocyte Esterase Mod [place]/uL (Negative) 04/06/18 09:12 Urine RBC (Auto) 6 /hpf (0-3) H 04/06/18 09:12 Urine Microscopic WBC 4 /hpf (0-5) 04/06/18 09:12 Ur Squamous Epith Cells 6 /hpf (0-5) H 04/06/18 09:12 Hyaline Casts 0-2 /hpf (0-2) 04/06/18 09:12 Stool Occult Blood Positive (NEGATIVE) H 04/04/18 03:33 Blood Type A POSITIVE 04/04/18 03:25 Antibody Screen Negative 04/04/18 03:25 BBK History Checked No verified bt 04/04/18 03:25 - Hospital Course Hospital Course: 83 yr old F admitted for symptomatic colitis and +FOBT with PMHx of HTN, colitis , arthritis, IBS. patient was started on home medication and IV Cipro and Flagyl. GI, Dr. Hoskins was consulted who recommended PO Cipro 500 Q12 for 7d after discharge. Patient's colitis symptoms improved but had few episodes of delirium a night before the discharge, patient's son admits leaving three tabs of Valium 2.5mg at bedside which patient reports taking before delirium. CBC, CMP, UA, Ucx, Bcx and CXR was done before discharge and evaluated. Patient was seen and examined this afternoon, calm, AAOx3 and verbally responsive, normal to her baseline. Patient is ambulating, and requesting for the discharge today. Follow up Urine Cx and Blood Cx as out patient. Follow up Dr. Daniels and GIDr. Hoskins after discharge Discharge Exam - Head Exam Head Exam: ATRAUMATIC, NORMOCEPHALIC - Eye Exam Eye Exam: EOMI, Normal appearance, PERRL Pupil Exam: NORMAL ACCOMODATION - ENT Exam ENT Exam: Mucous Membranes Moist - Respiratory Exam Respiratory Exam: Clear to PA & Lateral, NORMAL BREATHING PATTERN. absent: Rales, Wheezes, Respiratory Distress - Cardiovascular Exam Cardiovascular Exam: REGULAR RHYTHM, +S1, +S2 - GI/Abdominal Exam GI & Abdominal Exam: Normal Bowel Sounds, Soft. absent: Distended, Firm, Guarding, Hernia, Organomegaly, Rebound, Rigid, Tenderness - Extremities Exam Extremities exam: normal capillary refill, normal inspection, pedal pulses present - Back Exam Back exam: absent: CVA tenderness (L), CVA tenderness (R) - Neurological Exam Neurological exam: Alert, CN II-XII Intact, Oriented x3 - Psychiatric Exam Psychiatric exam: Normal Affect, Normal Mood - Skin Skin Exam: Dry, Intact, Normal Color, Warm Discharge Plan - Discharge Medications Prescriptions: Ciprofloxacin HCl [Cipro] 500 mg PO BID 7 Days #14 tablet - Follow Up Plan Condition: FAIR Disposition: HOME/ ROUTINE Instructions: Diarrhea in Adolescents and Adults, Constipation in Adults, Anxiety, Adult (DC), Controlling Your Blood Pressure Through Lifestyle Additional Instructions: Follow up with Dr. Daniels in 1 week Follow up with Dr. Gato NAJERA Referrals: Nadeem Daniels MD [Family Provider] - Ke Hoskins MD [Staff Provider] -
--- NOTE | 2018-04-06 19:44 | CP.PCM.PN ---
Subjective - Date & Time of Evaluation Date of Evaluation: 04/06/18 Time of Evaluation: 11:00 - Subjective Subjective: Currently without complaint. Tolerating regular diet. Objective - Vital Signs/Intake and Output Vital Signs (last 24 hours): Temp Pulse Resp BP Pulse Ox 98.2 F 83 20 163/90 H 99 04/06/18 09:00 04/06/18 09:01 04/06/18 09:00 04/06/18 09:01 04/06/18 09:00 - Labs Labs: 04/06/18 10:45 04/06/18 10:45 PT 11.7 Seconds (9.8-13.1) 04/04/18 03:33 INR 1.1 04/04/18 03:33 APTT 30.1 Seconds (25.6-37.1) 04/04/18 03:33 - Head Exam Head Exam: ATRAUMATIC - Eye Exam Eye Exam: Normal appearance Pupil Exam: PERRL - ENT Exam ENT Exam: Normal Exam - Neck Exam Neck Exam: Normal Inspection - Respiratory Exam Respiratory Exam: NORMAL BREATHING PATTERN - Cardiovascular Exam Cardiovascular Exam: REGULAR RHYTHM, +S1, +S2 - GI/Abdominal Exam GI & Abdominal Exam: Soft, Normal Bowel Sounds. absent: Tenderness Assessment and Plan (1) Colitis Assessment & Plan: Patient continues to improve. Stable for discharge. Continue Cipro for one week. Status: Acute
== END 2018-04-06 16:30 | disposition home health service (06) | DRG 392 ==
LOC: H.ER 02:22 → H.ERHOLD 05:26 → H.MEDSURG1 09:20 → OBSVTOIN 12:30
PROVIDERS: ADMIT Family Medicine; ATTEND Family Medicine
DX: A09 Infectious gastroenteritis and colitis, unspecified (principal); I10 Essential (primary) hypertension; K58.9 Irritable bowel syndrome, unspecified; K59.09 Other constipation; M19.90 Unspecified osteoarthritis, unspecified site; F41.9 Anxiety disorder, unspecified; R41.0 Disorientation, unspecified

== ENCOUNTER 2018-08-25 09:46 | Emergency (ER) | payer MEDICARE ==
[2018-08-25 09:48] VITALS: BMI 18.5
--- NOTE | 2018-08-25 10:26 | ED PDOC ---
History of Present Illness History of Present Illness: Pt presents to the ED with her two adult sons complaining of two weeks of flu like symptoms that include cough, congestion, body aches, occasional fever; she has no systemic or chronic medical conditions other than HTN which is controlled with NORVASC daily and a dx of colitis without symptoms for several months. The family has indicated that since her flu like symptoms, she has not been eatting very well and not consumming much fluid HPI: Influenza Time Seen by Provider: 08/25/18 10:23 Chief Complaint: Cough, Cold, Congestion Past Medical History Vital Signs: Last Vital Signs Temp 98.6 F 08/25/18 09:48 Pulse 104 H 08/25/18 09:48 Resp 18 08/25/18 09:48 BP 157/102 H 08/25/18 09:48 Pulse Ox 100 08/25/18 09:48 - Medical History PMH: Anxiety, Arthritis, HTN (norvasc PRN) Denies: Chronic Kidney Disease - Family History Family History: States: Unknown Family Hx - Home Medications Home Medications: Ambulatory Orders Medication Instructions Recorded Polyethylene Glycol 3350 [Miralax] 17 g PO QAM PRN #7 pkg 06/13/17 Tramadol HCl [Ultram] 50 mg PO Q6 04/04/18 amLODIPine [Norvasc] 5 mg PO DAILY 04/04/18 Ciprofloxacin HCl [Cipro] 500 mg PO BID 7 Days #14 tablet 04/06/18 Oseltamivir Phosphate [Tamiflu] 75 mg PO BID #10 capsule 08/25/18 - Allergies Allergies/Adverse Reactions: Allergies Allergy/AdvReac Type Severity Reaction Status Date / Time No Known Allergies Allergy Verified 06/12/17 20:08 Medical Decision Making Medical Decision Making: CBC/CMP indicate no significant clinical results UA indicates no significant clinical results Influenza negative CXR negative for infiltrates Pt feels better after 2L IV fluids Pt will be discharged with a course of tamiflu for her flu like symptoms and urged to follow up with her PMD, Dr Daniels in 24-48 hours-0- return to ED if symptoms persist. Pt is stable for discharge and no further treatment is necessary in the ED - Laboratory Results Result Diagrams: 08/25/18 10:50 08/25/18 10:50 Urine dip results: Negative for: Leukocyte Esterase, Blood, Nitrate, Ketones, Glucose, Bilirubin, Protein - ECG O2 Sat by Pulse Oximetry: 100 - Radiology X-Ray: Viewed By Me, Read By Radiologist X-Ray Interpretation: No Acute Disease Disposition - Clinical Impression Clinical Impression: Flu-like symptoms, Common cold - Patient ED Disposition Is Patient to be Admitted: No Doctor Will See Patient In The: Office Counseled Patient/Family Regarding: Studies Performed, Diagnosis, Need For Followup, Rx Given - Disposition Referrals: Chapo Cutler DPM [Medical Doctor] - Disposition: Routine/Home Disposition Time: 14:43 Condition: STABLE Additional Instructions: follow up with PMD in 24-48 hours for flu like symptoms, yuo have been given tamiflu other: dayquil nyquil fluids rest chicken soup Prescriptions: Oseltamivir Phosphate [Tamiflu] 75 mg PO BID #10 capsule Instructions: Viral Upper Respiratory Infection, Adult (DC) Forms: [employer] (Thai)
[2018-08-25 10:46] VITALS: RESP 16
[2018-08-25] MEDS: Sodium Chloride 0.9% 1,000 ML IV SCH ×2 (10:47→11:46)
[2018-08-25 10:56] LABS: BASO # 0.1 K/uL (0.0-0.2); BASO % 0.9 % (0.0-2.0); EOS # 0.1 K/uL (0.0-0.7); EOS % 1.4 % (0.0-4.0); HEMOGLOBIN 11.8 g/dL (12.0-16.0); LYMPH # 1.4 K/uL (1.0-4.3); LYMPH % 20.7 % (20.0-40.0); MEAN CELL VOLUME 89.6 fl (81.0-99.0); MEAN CORPUSCULAR HGB CONC 33.4 g/dL (33.0-37.0); MEAN PLATELET VOLUME 8.4 fl (7.2-11.7); MONO # 0.6 K/uL (0.0-0.8); NEUT # 4.8 K/uL (1.8-7.0); RBC 3.95 Mil/uL (3.80-5.20); RED CELL DISTRIBUTION WIDTH 12.4 % (11.5-14.5); WHITE BLOOD COUNT 6.9 K/uL (4.8-10.8)
[2018-08-25 11:09] LABS: BLOOD UREA NITROGEN 9 mg/dl (7-17); CALCIUM 9.4 mg/dL (8.4-10.2); GFR NON-AFRICAN AMERICAN > 60
[2018-08-25 11:12] LABS: ALT/SGPT 21 U/L (9-52)
[2018-08-25 11:14] LABS: AST/SGOT 43 U/L (14-36)
[2018-08-25 12:28] LABS: SQUAMOUS EPITHIAL 1 /hpf (0-5); URINE BACTERIA RARE (<OCC); URINE BILIRUBIN NEGATIVE (NEGATIVE); URINE BLOOD NEGATIVE (NEGATIVE); URINE CLARITY CLEAR (Clear); URINE COLOR STRAW (YELLOW); URINE GLUCOSE (UA) NEG (NEGATIVE); URINE LEUKOCYTE ESTERASE SMALL Leu/uL (Negative); URINE PROTEIN NEGATIVE (NEGATIVE); URINE UROBILINOGEN 0.2-1.0 mg/dL (0.2-1.0)
[2018-08-25] MEDS ORDERED: Sodium Chloride 0.9% 1,000 ML IV SCH (13:00)
--- NOTE | 2018-08-25 13:53 | RAD ---
Date of service: 08/25/2018 HISTORY: r/o PNA COMPARISON: No prior. TECHNIQUE: Chest PA and lateral FINDINGS: LUNGS: No active pulmonary disease. PLEURA: No significant pleural effusion identified. No pneumothorax apparent. CARDIOVASCULAR: No aortic atherosclerotic calcification present. Normal cardiac size. No pulmonary vascular congestion. OSSEOUS STRUCTURES: Kyphotic thoracic spinal deformity reiterated. VISUALIZED UPPER ABDOMEN: Normal. OTHER FINDINGS: None. IMPRESSION: No interval acute cardiopulmonary disease appreciated.
[2018-08-25 14:53] VITALS: BP 146/82; PULSE 82; TEMP 98.2; O2SAT 95
--- NOTE | 2018-08-25 18:37 | CARD ---
APPROVED REPORT Date of service: 08/25/2018 EKG Measurement Heart [id number] <Conclusion> Normal sinus rhythm Normal ECG
== END 2018-08-25 14:53 | disposition home or self-care (01) ==
LOC: H.ER 09:46
DX: J11.1 Influenza due to unidentified influenza virus with other respiratory manifestations (principal); J00 Acute nasopharyngitis [common cold]; I10 Essential (primary) hypertension; F41.9 Anxiety disorder, unspecified; R05 Cough
CPT/HCPCS: 71046; 80053; 81003; 85025; 87804; 93005; 99283; J7030